=== PATIENT | female | born 1940 | race Caucasian/White ===

== ENCOUNTER → 2017-03-28 | Outpatient (CLI) | payer OTHER ==
[~2017-03-28] MED LIST: BCTO EXT; BUME2TAB3 PO; CALCTAB7 PO; CARV6.252 PO; CLOP1TAB54 PO; CRS10 PO; DOCU1TAB6 PO; FERR1TAB62 PO; HYDR-4380 PO; INSDGI SC; LOVAZA PO; LSN40 PEG; MAGN400T6 PO; NYSTCRE11 TOP; PRLSR20 PO; RCL25 PO; SOLI10TA2 PO
[2017-03-28 15:09] LABS: ALBUMIN 3.8 gm/dl (3.4-5.0); ALT/SGPT 20 U/L (12-78); BLOOD UREA NITROGEN 74 mg/dl (7-18); CALCIUM 8.4 mg/dl (8.5-10.1); CARBON DIOXIDE 26 mmol/L (21-32); CREATININE 1.76 mg/dl (0.60-1.20); GLUCOSE 90 mg/dl (70-99); SODIUM 140 mmol/L (136-145); URIC ACID 8.2 mg/dl (2.6-7.2)
[2017-03-28 15:10] LABS: HEMATOCRIT 35.7 % (37-47); HEMOGLOBIN 11.7 g/dL (12.0-16.0); MEAN CELL VOLUME 93.5 fL (80-100); MEAN CORPUSCULAR HEMOGLOBIN 30.6 pg (25-34); MEAN CORPUSCULAR HGB CONC 32.8 g/dl (32-36); MEAN PLATELET VOLUME 12.4 fL (7.4-10.4); PLATELET COUNT 126 K/uL (130-400); RED CELL DISTRIBUTION WIDTH CV 14.8 % (11.5-14.5); RED CELL DISTRIBUTION WIDTH SD 50.3 fL (36.4-46.3); WHITE BLOOD COUNT 5.94 K/uL (4.8-10.8)
[2017-03-28 15:12] LABS: ALKALINE PHOSPHATASE 50 U/L (45-117); AST/SGOT 10 U/L (15-37); TOTAL PROTEIN 7.1 gm/dl (6.4-8.2)
== END | disposition home or self-care (01) ==
LOC: C.LAB1850 13:28
PROVIDERS: ATTEND Internal Medicine Nephrology
DX: M81.0 Age-related osteoporosis without current pathological fracture (principal); I10 Essential (primary) hypertension; N28.9 Disorder of kidney and ureter, unspecified; D64.9 Anemia, unspecified; R80.9 Proteinuria, unspecified

== ENCOUNTER → 2017-04-09 | Outpatient (CLI) | payer OTHER | END | disposition home or self-care (01) | LOC: C.LABMFLN 11:09 | PROVIDERS: ATTEND Internal Medicine Endocrinology, Diabetes & Metabolism | DX: M81.0 Age-related osteoporosis without current pathological fracture (principal) ==